=== PATIENT | female | born 1985 | race Caucasian/White ===

== ENCOUNTER 2023-03-15 23:19 | Emergency (ER) | payer SELFPAY ==
[~2023-03-15] VITALS: Ht 175.3 cm; Wt 85.9 kg
[2023-03-15 23:39] LABS: BILIRUBIN, URINE NEGATIVE (negative); BLOOD/HGB, URINE LARGE (Negative); KETONE, URINE NEGATIVE (Negative); LEUK ESTERASE, URINE MODERATE (negative); NITRITE, URINE POSITIVE (negative)
[2023-03-15 23:42] LABS: RED BLOOD CELLS, URINE >50 /hpf (0-5); WHITE BLOOD CELLS, URINE 41-50 /HPF (0-5)
[2023-03-15 23:43] LABS: BACTERIA, URINE 2+ /hpf (negative); CASTS, URINE NONE SEEN \\lpf; COLLECTION TYPE, URINE CLEAN CATCH; CRYSTALS, URINE NONE SEEN (0-1+); EPITHELIAL CELLS, URINE 0 /lpf (0-1+); REFLEX CULTURE, URINE Yes (No)
[2023-03-15] MEDS ORDERED: PYRIDIUM100 MG PO (23:48)
[2023-03-15] MEDS ORDERED: MACROBID 100 M100 MG PO (23:48)
[2023-03-16 00:01] VITALS: BP 142/95
== END 2023-03-16 00:01 | disposition home or self-care (01) ==
LOC: ED 23:19
PROVIDERS: Internal Medicine
DX: N39.0 Urinary tract infection, site not specified (principal)
CPT/HCPCS: 81001; 84703; 87088; 99284

== ENCOUNTER 2023-05-13 11:46 | Emergency (ER) | payer SELFPAY ==
[~2023-05-13] VITALS: Ht 175.3 cm; Wt 89.3 kg
[~2023-05-13 11:46] MED LIST: MACROBID 100 M100 MG PO; PYRIDIUM100 MG PO
[2023-05-13] MEDS ORDERED: CYCLOBENZAPRINE10 MG PO (14:12)
[2023-05-13 16:13] VITALS: BP 112/74
== END 2023-05-13 16:17 | disposition home or self-care (01) ==
LOC: ED 11:46
DX: G44.209 Tension-type headache, unspecified, not intractable (principal)
CPT/HCPCS: 96374; 96375; 99283-25; A9270; J1885; J2060; J7040